=== PATIENT | male | born 1935 | race Caucasian/White ===

== ENCOUNTER 2018-11-07 17:29 | Inpatient (IN) | payer MEDICARE, OTHER ==
[~2018-11-07] VITALS: Ht 172.7 cm; Wt 78.2 kg
[~2018-11-07 17:29] MED LIST: ATEN25 PO; CEPH500 PO; DOXA4 PO; Flomax0.4 MG PO; NIFE90ER PO; POTCHL10ER PO; PROB500 PO; TRIA50 PO
[2018-11-07 17:56] LABS: BASOPHILS ABSOLUTE AUTO 0.03 K/mm3 (0.00-0.23); BASOPHILS PERCENT AUTO 1 % (0-2); EOSINOPHILS ABSOLUTE AUTO 0.09 K/mm3 (0.00-0.68); EOSINOPHILS PERCENT AUTO 2 % (0-6); Hematocrit 40.2 % (37.0-53.0); Hemoglobin 13.7 g/dL (13.5-17.5); IMMATURE GRAN ABSOLUTE AUTO 0.01 K/mm3 (0.00-0.10); IMMATURE GRAN PERCENT AUTO 0 % (0-1); LYMPHOCYTES ABSOLUTE AUTO 1.07 K/mm3 (0.84-5.20); LYMPHOCYTES PERCENT AUTO 18 % (21-46); MONOCYTES ABSOLUTE AUTO 0.42 K/mm3 (0.16-1.47); MONOCYTES PERCENT AUTO 7 % (4-13); Mean Corpuscular HGB Conc 34.1 g/dL (31.5-36.5); Mean Corpuscular Volume 91 fL (80-100); Mean Platelet Volume 10.4 fL (9.1-12.4); NEUTROPHILS ABSOLUTE AUTO 4.24 K/mm3 (1.96-9.15); NEUTROPHILS PERCENT AUTO 72 % (41-73); Platelet Count 147 K/mm3 (150-400); RDW Coefficient Variation 13.2 % (11.7-14.2); RDW Standard Deviation 44.1 fL (35.1-46.3); Red Blood Cell Count 4.42 M/mm3 (4.30-5.90); White Blood Cell Count 5.86 K/mm3 (4.00-11.30)
[2018-11-07 18:15] LABS: Albumin, Blood 4.3 g/dL (3.4-5.0); Bilirubin, Total 0.6 mg/dL (0.1-1.0); Calcium, Blood 9.7 mg/dL (8.5-10.1); Creatinine, Blood 1.89 mg/dL (0.60-1.20); Globulin, Blood 4.3 g/dL (2.2-4.0); Potassium, Blood 3.1 mmol/L (3.5-5.5); Total Protein, Blood 8.6 g/dL (6.4-8.2); Troponin I 0.017 ng/mL (0.000-0.040)
[2018-11-07 18:40] LABS: Source, Urine Catheter
[2018-11-07 18:44] LABS: Appearance, Urine Cloudy (Clear); Bilirubin, Urine Neg (Neg); Blood, Urine 5+ (Neg); Color, Urine Yellow (P-Yellow); Glucose Qualitative, Urine Neg (Neg); Ketones, Urine Neg (Neg); Leukocyte Esterase, Urine 2+ (Neg); Nitrite, Urine Neg (Neg); Protein, Urine 3+ (Neg); Specific Gravity, Urine 1.015 (1.003-1.022); Urobilinogen, Urine NORM (Normal); pH, Urine 6.5 (5.0-8.0)
[2018-11-07 19:02] LABS: Red Blood Cells, Urine TNTC /hpf (0-2); White Blood Cells, Urine 25-50 /hpf (0-5)
[2018-11-07 19:03] LABS: Bacteria Few /hpf; Squamous Epithelial Cells Not Seen /hpf (Few)
[2018-11-08 05:15] LABS: Hematocrit 36.2 % (37.0-53.0); Hemoglobin 12.1 g/dL (13.5-17.5); Mean Corpuscular HGB Conc 33.4 g/dL (31.5-36.5); Mean Corpuscular Volume 90 fL (80-100); Mean Platelet Volume 11.1 fL (9.1-12.4); Platelet Count 143 K/mm3 (150-400); RDW Coefficient Variation 13.2 % (11.7-14.2); RDW Standard Deviation 42.9 fL (35.1-46.3); Red Blood Cell Count 4.04 M/mm3 (4.30-5.90); White Blood Cell Count 7.53 K/mm3 (4.00-11.30)
[2018-11-08 05:45] LABS: Albumin, Blood 3.3 g/dL (3.4-5.0); Albumin/Globulin Ratio 0.9 (0.8-1.8); Bilirubin, Total 0.5 mg/dL (0.1-1.0); Bun/Creatinine Ratio 16.9 (12.0-20.0); Calcium, Blood 8.2 mg/dL (8.5-10.1); Creatinine, Blood 1.77 mg/dL (0.60-1.20); Globulin, Blood 3.5 g/dL (2.2-4.0); Potassium, Blood 3.6 mmol/L (3.5-5.5); Total Protein, Blood 6.8 g/dL (6.4-8.2)
[2018-11-11] MEDS ORDERED: METO25ER PO (14:31)
[2018-11-11] MEDS ORDERED: TAMS.4ER PO (14:32)
[2018-11-11] MEDS ORDERED: CIPRO500 MG PO (14:33)
== END 2018-11-11 15:03 | DRG 690 ==
LOC: ER 17:29 → MEDS 11-08 00:08 → ENPENDDIS 11-11 11:30 → MEDS 11-11 15:03
PROVIDERS: Emergency Medicine; Internal Medicine
DX: N39.0 Urinary tract infection, site not specified (principal); I47.1 Supraventricular tachycardia; N18.3 Chronic kidney disease, stage 3 (moderate); I34.0 Nonrheumatic mitral (valve) insufficiency; R31.9 Hematuria, unspecified; R01.1 Cardiac murmur, unspecified; E87.6 Hypokalemia; E86.0 Dehydration; M19.90 Unspecified osteoarthritis, unspecified site
CPT/HCPCS: 36415; 51702; 70450; 71046; 80053; 81001; 83880; 84443; 84484; 85025; 85027; 87086; 93005; 93010; 93306; 96361; 96365; 96375; 97110; 97162; 97166; 97530; 97535; 99285-25; G8978; G8979; G8987; G8988; J0360; J0696; J7030; J7050

== ENCOUNTER → 2019-05-24 | Outpatient (CLI) | payer MEDICARE, OTHER ==
[~2019-05-24] MED LIST changes: +CIPRO500 MG PO; +METO25ER PO; +TAMS.4ER PO
== END ==
LOC: LAB SHORT 10:30 → LAB 10:30
DX: Z48.817 Encounter for surgical aftercare following surgery on the skin and subcutaneous tissue (principal)
CPT/HCPCS: 87070; 87205

== ENCOUNTER 2019-09-23 10:24 | Emergency (ER) | payer MEDICARE, OTHER ==
[~2019-09-23] VITALS: Ht 170.2 cm; Wt 82.1 kg
[2019-09-23] MEDS ORDERED: METO50ER PO (10:48)
[2019-09-23] MEDS ORDERED: Norvasc2.5 MG PO (10:48)
[2019-09-23] MEDS ORDERED: POTA8 PO (10:48)
[2019-09-23] MEDS ORDERED: FURO20 PO (10:48)
[2019-09-23] MEDS ORDERED: ACET325 PO (10:49)
[2019-09-23 11:43] LABS: Source, Urine Catheter
[2019-09-23 11:46] LABS: Appearance, Urine Cloudy (Clear); Bilirubin, Urine Neg (Neg); Blood, Urine 5+ (Neg); Color, Urine Yellow (P-Yellow); Glucose Qualitative, Urine Neg (Neg); Ketones, Urine Neg (Neg); Leukocyte Esterase, Urine 3+ (Neg); Nitrite, Urine Neg (Neg); Protein, Urine 4+ (Neg); Urobilinogen, Urine NORM (Normal)
[2019-09-23 11:56] LABS: White Blood Cells, Urine TNTC /hpf (0-5)
[2019-09-23 11:58] LABS: Bacteria Many /hpf; Red Blood Cells, Urine 25-50 /hpf (0-2); Squamous Epithelial Cells Not Seen /hpf (Few)
[2019-09-23] MEDS ORDERED: LEVFLO500 PO (12:03)
== END 2019-09-23 13:03 | disposition home or self-care (01) ==
LOC: ER 10:24
PROVIDERS: Emergency Medicine
DX: T83.091A Other mechanical complication of indwelling urethral catheter, initial encounter (principal); N39.0 Urinary tract infection, site not specified; I12.9 Hypertensive chronic kidney disease with stage 1 through stage 4 chronic kidney disease, or unspecified chronic kidney disease; N18.9 Chronic kidney disease, unspecified; D63.1 Anemia in chronic kidney disease; R60.0 Localized edema; Z79.899 Other long term (current) drug therapy
CPT/HCPCS: 51702; 81001; 87077; 87086; 87186; 99283

== ENCOUNTER 2020-02-11 17:09 | Emergency (ER) | payer MEDICARE, OTHER ==
[~2020-02-11] VITALS: Ht 170.2 cm; Wt 88.5 kg
[~2020-02-11 17:09] MED LIST changes: +ACET325 PO; +FURO20 PO; +LEVFLO500 PO; +METO50ER PO; +Norvasc2.5 MG PO; +POTA8 PO
[2020-02-11 18:08] LABS: Source, Urine Catheter
[2020-02-11 18:11] LABS: Bilirubin, Urine Neg (Neg); Blood, Urine 5+ (Neg); Glucose Qualitative, Urine Neg (Neg); Ketones, Urine Neg (Neg); Leukocyte Esterase, Urine 3+ (Neg); Nitrite, Urine Neg (Neg); Protein, Urine 3+ (Neg); Urobilinogen, Urine NORM (Normal)
[2020-02-11 18:18] LABS: Appearance, Urine Hazy (Clear); Color, Urine Pale Yellow (P-Yellow)
[2020-02-11 18:20] LABS: Bacteria Few /hpf; Red Blood Cells, Urine TNTC /hpf (0-2); Squamous Epithelial Cells Not Seen /hpf (Few); White Blood Cells, Urine TNTC /hpf (0-5)
[2020-02-11] MEDS ORDERED: CEPH500 PO (18:28)
[2020-02-11] MEDS ORDERED: Nystatin15 GM TOP (18:28)
== END 2020-02-11 19:38 | disposition home or self-care (01) ==
LOC: ER 17:09
PROVIDERS: Nurse Practitioner
DX: N39.0 Urinary tract infection, site not specified (principal); B37.2 Candidiasis of skin and nail; I12.9 Hypertensive chronic kidney disease with stage 1 through stage 4 chronic kidney disease, or unspecified chronic kidney disease; N18.9 Chronic kidney disease, unspecified; N40.0 Benign prostatic hyperplasia without lower urinary tract symptoms; M19.90 Unspecified osteoarthritis, unspecified site; Z79.899 Other long term (current) drug therapy
CPT/HCPCS: 51702; 81001; 87077; 87086; 87186; 99283

== ENCOUNTER → 2020-10-31 | Outpatient (CLI) | payer MEDICARE, OTHER ==
[~2020-10-31] MED LIST changes: +Nystatin15 GM TOP
[2020-10-31 15:53] LABS: Calcium, Urine 5.6 mg/dL (< 17.5); Calcium, Urine Calculation 123.2 mg/24hrs (42.0-353.0); Phosphorus, Urine 28.8 mg/dL (20.0-60.0)
[2020-10-31 17:06] LABS: Protein, Urine Quantitative 115.8 mg/dL (0.0-11.9); Uric Acid, Urine 24.1 mg/dL (7.5-49.5)
== END | disposition home or self-care (01) ==
LOC: LAB 13:33 → LAB SHORT 13:33 → LAB FUT 10-17 10:15
PROVIDERS: Internal Medicine Nephrology
DX: N18.4 Chronic kidney disease, stage 4 (severe) (principal); D63.1 Anemia in chronic kidney disease; N25.81 Secondary hyperparathyroidism of renal origin; E55.9 Vitamin D deficiency, unspecified; E78.00 Pure hypercholesterolemia, unspecified; R76.9 Abnormal immunological finding in serum, unspecified; R94.5 Abnormal results of liver function studies; R94.6 Abnormal results of thyroid function studies; G60.9 Hereditary and idiopathic neuropathy, unspecified
CPT/HCPCS: 81050; 82043; 82131; 82340; 82507; 82570; 83945; 84105; 84133; 84156; 84300; 84560

== ENCOUNTER → 2021-01-21 | Outpatient (CLI) | payer MEDICARE, OTHER ==
[2021-01-21 15:28] LABS: Creatinine Urine 58.4 mg/dL (27.00-270.00); Protein, Urine Quantitative 225.2 mg/dL (0.0-11.9)
== END | disposition home or self-care (01) ==
LOC: LAB 11:00 → LAB SHORT 11:00 → LAB FUT 01-15 10:00
PROVIDERS: Internal Medicine Nephrology
DX: N18.30 Chronic kidney disease, stage 3 unspecified (principal); D63.1 Anemia in chronic kidney disease; D50.9 Iron deficiency anemia, unspecified; N25.81 Secondary hyperparathyroidism of renal origin; E78.00 Pure hypercholesterolemia, unspecified; E55.9 Vitamin D deficiency, unspecified; D51.8 Other vitamin B12 deficiency anemias; D52.8 Other folate deficiency anemias; N40.1 Benign prostatic hyperplasia with lower urinary tract symptoms; R76.9 Abnormal immunological finding in serum, unspecified; R94.5 Abnormal results of liver function studies; R94.6 Abnormal results of thyroid function studies
CPT/HCPCS: 81050; 82043; 82570; 84156

== ENCOUNTER → 2021-02-26 | Outpatient (CLI) | payer MEDICARE, OTHER | LOC: LAB SHORT 13:11 | DX: L08.9 Local infection of the skin and subcutaneous tissue, unspecified (principal); L21.8 Other seborrheic dermatitis; L81.4 Other melanin hyperpigmentation; D22.72 Melanocytic nevi of left lower limb, including hip; D22.4 Melanocytic nevi of scalp and neck; Z71.89 Other specified counseling | CPT/HCPCS: 87070; 87077; 87147; 87186; 87205 ==

== ENCOUNTER → 2021-04-04 | Outpatient (CLI) | payer MEDICARE, OTHER | LOC: LAB SHORT 13:14 → LAB 13:14 | DX: L08.9 Local infection of the skin and subcutaneous tissue, unspecified (principal); R60.0 Localized edema; L57.0 Actinic keratosis; L21.8 Other seborrheic dermatitis; L57.8 Other skin changes due to chronic exposure to nonionizing radiation | CPT/HCPCS: 87070; 87205 ==

== ENCOUNTER → 2021-08-01 | Outpatient (CLI) | payer MEDICARE, OTHER ==
[2021-08-01 15:34] LABS: Source, Urine Catheter
[2021-08-01 16:09] LABS: Appearance, Urine Cloudy (Clear); Bilirubin, Urine Neg (Neg); Blood, Urine 5+ (Neg); Color, Urine Yellow (P-Yellow); Glucose Qualitative, Urine Neg (Neg); Ketones, Urine Neg (Neg); Leukocyte Esterase, Urine 3+ (Neg); Nitrite, Urine Neg (Neg); Protein, Urine 3+ (Neg); Urobilinogen, Urine NORM (Normal)
[2021-08-01 16:21] LABS: Red Blood Cells, Urine 50-100 /hpf (0-2); Squamous Epithelial Cells Few /hpf (Few); White Blood Cells, Urine 25-50 /hpf (0-5)
[2021-08-01 16:22] LABS: Bacteria Few /hpf; Mucus Light (0-Heavy)
== END | disposition home or self-care (01) ==
LOC: LAB HH 15:30 → LAB SHORT 15:30
PROVIDERS: Urology
DX: N39.0 Urinary tract infection, site not specified (principal)
CPT/HCPCS: 81001; 87077; 87086; 87186

== ENCOUNTER → 2021-08-29 | Outpatient (CLI) | payer MEDICARE, OTHER | LOC: LAB SHORT 10:45 | DX: D22.61 Melanocytic nevi of right upper limb, including shoulder (principal); D22.62 Melanocytic nevi of left upper limb, including shoulder; L30.4 Erythema intertrigo; R21 Rash and other nonspecific skin eruption; L81.4 Other melanin hyperpigmentation; L57.8 Other skin changes due to chronic exposure to nonionizing radiation; Z71.89 Other specified counseling | CPT/HCPCS: 87070; 87205 ==

== ENCOUNTER → 2021-11-28 | Outpatient (CLI) | payer MEDICARE, OTHER | LOC: LAB SHORT 14:06 | DX: D48.5 Neoplasm of uncertain behavior of skin (principal) | CPT/HCPCS: 88312 ==

== ENCOUNTER → 2021-12-31 | Outpatient (CLI) | payer MEDICARE, OTHER ==
[~2021-12-31] MED LIST changes: +AMLO5 PO; +AMOCLA875 PO; +AZIT500 PO; +BUME2 PO; +CALCIUM CARBON500 M1 PO; +DOCU100 PO; +GENT15TO; +METO2.5 PO; -Norvasc2.5 MG PO; -POTA8 PO; +POTCHL20ER PO; +THERA-D2000 UNIT PO; +ZINC OXIDE TOP
== END ==
LOC: LAB SHORT 17:57 → LAB 17:57
DX: L57.0 Actinic keratosis (principal); L57.8 Other skin changes due to chronic exposure to nonionizing radiation; L08.9 Local infection of the skin and subcutaneous tissue, unspecified; B96.89 Other specified bacterial agents as the cause of diseases classified elsewhere
CPT/HCPCS: 87070; 87205

== ENCOUNTER → 2022-01-24 | Outpatient (CLI) | payer MEDICARE, OTHER ==
[2022-01-24 16:29] LABS: Source, Urine Voided
[2022-01-24 17:26] LABS: Bilirubin, Urine Neg (Neg); Blood, Urine 4+ (Neg); Glucose Qualitative, Urine Neg (Neg); Ketones, Urine Neg (Neg); Leukocyte Esterase, Urine 3+ (Neg); Nitrite, Urine Neg (Neg); Protein, Urine 2+ (Neg); Urobilinogen, Urine NORM (Normal)
[2022-01-24 17:49] LABS: Appearance, Urine Hazy (Clear); Color, Urine Pale Yellow (P-Yellow)
[2022-01-24 17:51] LABS: Bacteria Few /hpf; Red Blood Cells, Urine 25-50 /hpf (0-2); Squamous Epithelial Cells Rare /hpf (Few); WBC Cast 0-2 /lpf (0)
== END ==
LOC: LAB SHORT 16:27
PROVIDERS: Internal Medicine Hematology & Oncology
DX: N39.0 Urinary tract infection, site not specified (principal)
CPT/HCPCS: 81001; 87077; 87086; 87186

== ENCOUNTER 2022-02-03 02:06 | Day surgery (SDC) | payer MEDICARE, OTHER ==
[2022-02-03] MEDS ORDERED: [UNRECOGNIZED DRUG - OTHER] (13:20)
[2022-02-03] MEDS ORDERED: HEMORRHOID CREAM (13:21)
[2022-02-03] MEDS ORDERED: TAMS.4ER PO (13:22)
[2022-02-03] MEDS ORDERED: THERA-D2000 UNIT PO (13:22)
[2022-02-03] MEDS ORDERED: KETO15TC TOP (13:27)
[2022-02-03] MEDS ORDERED: NYSTRIT TOP (13:29)
== END 2022-02-03 11:00 | disposition home or self-care (01) ==
LOC: ATC 02:06
DX: N39.0 Urinary tract infection, site not specified (principal); I12.9 Hypertensive chronic kidney disease with stage 1 through stage 4 chronic kidney disease, or unspecified chronic kidney disease; N18.4 Chronic kidney disease, stage 4 (severe); E55.9 Vitamin D deficiency, unspecified
CPT/HCPCS: J0713

== ENCOUNTER 2022-02-04 04:50 | Day surgery (SDC) | payer MEDICARE, OTHER ==
[~2022-02-04 04:50] MED LIST changes: +HEMORRHOID CREAM; +KETO15TC TOP; +NYSTRIT TOP; +[UNRECOGNIZED DRUG - OTHER]
== END 2022-02-04 10:52 | disposition home or self-care (01) ==
LOC: ATC 04:50
DX: N39.0 Urinary tract infection, site not specified (principal); L21.8 Other seborrheic dermatitis; B37.2 Candidiasis of skin and nail; B35.1 Tinea unguium; B35.3 Tinea pedis; I87.2 Venous insufficiency (chronic) (peripheral); R60.0 Localized edema; Z79.899 Other long term (current) drug therapy
CPT/HCPCS: 36415; 80076; 96365; J0713

== ENCOUNTER 2022-02-05 01:20 | Day surgery (SDC) | payer MEDICARE, OTHER | END 2022-02-05 10:31 | disposition home or self-care (01) | LOC: ATC 01:20 | DX: N39.0 Urinary tract infection, site not specified (principal) | CPT/HCPCS: 96365; J0713 ==

== ENCOUNTER 2022-02-06 01:15 | Day surgery (SDC) | payer MEDICARE, OTHER | END 2022-02-06 10:25 | disposition home or self-care (01) | LOC: ATC 01:15 | DX: N39.0 Urinary tract infection, site not specified (principal); E87.6 Hypokalemia | CPT/HCPCS: 36415; 84132; 96365; J0713 ==

== ENCOUNTER 2022-02-07 02:50 | Day surgery (SDC) | payer MEDICARE, OTHER | END 2022-02-07 10:37 | disposition home or self-care (01) | LOC: ATC 02:50 | DX: N39.0 Urinary tract infection, site not specified (principal); I12.9 Hypertensive chronic kidney disease with stage 1 through stage 4 chronic kidney disease, or unspecified chronic kidney disease; N18.4 Chronic kidney disease, stage 4 (severe); E55.9 Vitamin D deficiency, unspecified; E87.6 Hypokalemia; M85.80 Other specified disorders of bone density and structure, unspecified site | CPT/HCPCS: 96365; J0713 ==

== ENCOUNTER 2022-07-27 18:19 | Inpatient (IN) | payer MEDICARE, OTHER ==
[~2022-07-27] VITALS: Ht 172.7 cm; Wt 80.9 kg
[2022-07-27 19:18] LABS: BASOPHILS ABSOLUTE AUTO 0.01 K/mm3 (0.00-0.23); BASOPHILS PERCENT AUTO 0 % (0-2); EOSINOPHILS ABSOLUTE AUTO 0.11 K/mm3 (0.00-0.68); EOSINOPHILS PERCENT AUTO 1 % (0-6); Hematocrit 34.7 % (37.0-53.0); Hemoglobin 11.6 g/dL (13.5-17.5); IMMATURE GRAN ABSOLUTE AUTO 0.03 K/mm3 (0.00-0.10); IMMATURE GRAN PERCENT AUTO 0 % (0-1); LYMPHOCYTES ABSOLUTE AUTO 0.74 K/mm3 (0.84-5.20); LYMPHOCYTES PERCENT AUTO 9 % (21-46); MONOCYTES ABSOLUTE AUTO 0.84 K/mm3 (0.16-1.47); MONOCYTES PERCENT AUTO 10 % (4-13); Mean Corpuscular HGB 29.7 pg (26.0-34.0); Mean Corpuscular HGB Conc 33.4 g/dL (31.5-36.5); Mean Corpuscular Volume 89 fL (80-100); Mean Platelet Volume 10.4 fL (9.1-12.4); NEUTROPHILS ABSOLUTE AUTO 6.63 K/mm3 (1.96-9.15); NEUTROPHILS PERCENT AUTO 79 % (41-73); Platelet Count 183 K/mm3 (150-400); RDW Coefficient Variation 14.4 % (11.7-14.2); RDW Standard Deviation 47.1 fL (35.1-46.3); White Blood Cell Count 8.36 K/mm3 (4.00-11.30)
[2022-07-27 19:32] LABS: Albumin, Blood 2.6 g/dL (3.4-5.0); Albumin/Globulin Ratio 0.6 (0.8-1.8); Bilirubin, Total 0.6 mg/dL (0.1-1.0); Bun/Creatinine Ratio 19.7 (12.0-20.0); Calcium, Blood 9.1 mg/dL (8.5-10.1); Creatinine, Blood 2.18 mg/dL (0.60-1.20); Globulin, Blood 4.7 g/dL (2.2-4.0); Potassium, Blood 3.7 mmol/L (3.5-5.5); Thyroid Stimulating Hormone 1.4 uIU/mL (0.360-4.800); Total Protein, Blood 7.3 g/dL (6.4-8.2)
[2022-07-27 20:38] LABS: Source, Urine Clean Catch
[2022-07-27 20:44] LABS: Appearance, Urine Cloudy (Clear); Bilirubin, Urine Neg (Neg); Blood, Urine 5+ (Neg); Color, Urine Yellow (P-Yellow); Glucose Qualitative, Urine 1+ (Neg); Ketones, Urine Neg (Neg); Leukocyte Esterase, Urine 3+ (Neg); Nitrite, Urine Pos (Neg); Protein, Urine 3+ (Neg); Urobilinogen, Urine NORM (Normal)
[2022-07-27 21:05] LABS: Bacteria Many /hpf; Red Blood Cells, Urine TNTC /hpf (0-2); Squamous Epithelial Cells Few /hpf (Few); White Blood Cells, Urine TNTC /hpf (0-5)
[2022-07-27 21:22] LABS: Influenza A, PCR NEGATIVE (NEGATIVE); Influenza B, PCR NEGATIVE (NEGATIVE); Resp Syncytial Virus, PCR NEGATIVE (NEGATIVE); SARS-Cov-2 (COVID-19) PCR, MMC NEGATIVE (NEGATIVE)
[2022-07-28 06:13] LABS: BASOPHILS ABSOLUTE AUTO 0.01 K/mm3 (0.00-0.23); BASOPHILS PERCENT AUTO 0 % (0-2); EOSINOPHILS ABSOLUTE AUTO 0.07 K/mm3 (0.00-0.68); EOSINOPHILS PERCENT AUTO 1 % (0-6); Hemoglobin 11.6 g/dL (13.5-17.5); IMMATURE GRAN ABSOLUTE AUTO 0.03 K/mm3 (0.00-0.10); IMMATURE GRAN PERCENT AUTO 0 % (0-1); LYMPHOCYTES ABSOLUTE AUTO 0.95 K/mm3 (0.84-5.20); LYMPHOCYTES PERCENT AUTO 13 % (21-46); MONOCYTES ABSOLUTE AUTO 0.78 K/mm3 (0.16-1.47); MONOCYTES PERCENT AUTO 11 % (4-13); Mean Corpuscular HGB 29.8 pg (26.0-34.0); Mean Corpuscular HGB Conc 34.1 g/dL (31.5-36.5); Mean Corpuscular Volume 87 fL (80-100); Mean Platelet Volume 10.7 fL (9.1-12.4); NEUTROPHILS ABSOLUTE AUTO 5.29 K/mm3 (1.96-9.15); NEUTROPHILS PERCENT AUTO 74 % (41-73); Platelet Count 181 K/mm3 (150-400); RDW Coefficient Variation 14.2 % (11.7-14.2); Red Blood Cell Count 3.89 M/mm3 (4.30-5.90); White Blood Cell Count 7.13 K/mm3 (4.00-11.30)
[2022-07-28 06:22] LABS: Albumin, Blood 2.3 g/dL (3.4-5.0); Albumin/Globulin Ratio 0.5 (0.8-1.8); Bilirubin, Total 0.6 mg/dL (0.1-1.0); Bun/Creatinine Ratio 21.3 (12.0-20.0); Creatinine, Blood 2.02 mg/dL (0.60-1.20); Globulin, Blood 4.7 g/dL (2.2-4.0)
--- NOTE | 2022-07-28 16:39 | NUR ---
ADMIT NOTE: REPORT RECEIVED FROM BRINA LAW IN ER. PT TX TO ROOM 302 VIA GURNEY AND SLIDE TX TO BED. PT A/O X 4 PLEASANT AND COOPERATIVE WITH CARE. SKIN ASSESSMENT COMPLETED AND 2 CM X 2 CM STAGE 2 PRESSURE SORE FOUND ON L SIDE BUTTOCK. PT GAVE PERMISSION TO PHOTO DOCUMENT. PHOTO TAKEN AND WOUND CLEANSED WITH SALINE AND GAUZE AND MEPILEX APPLIED. PT ALSO HAD YEAST LIKE ODOROUS RASH IN GROIN AND ON TESTICLES. SKIN MOIST. SKIN CLEANSED AND ATTENDS APPLIED. PT HAS CHRONIC INDWELLING CATHETER LEG BAG ON AND CONTAINS PURULENT COLORED URINE AND IS FOUL SMELLING. PT REPORTS THIS IS A CHRONIC INDWELLING CATHETER AND HAS SERVICES CHANGE CATHETER MONTHLY. PT REFUSES TO HAVE CATHETER CHANGED AT THIS TIME. PT REPORTS PAIN TO KNEE IS TOLERABLE SINCE TYLENOL GIVEN. PT DENIES ANY OTHER NEEDS AT THIS TIME.
[2022-07-28 22:12] LABS: BODY FLUID RBC 0.006 M/mm3 (0-0)
[2022-07-28 22:13] LABS: Body Fluid Crystals POS (NEGATIVE)
[2022-07-28 22:17] LABS: RBC Count, Synovial Fluid 6000 /mm3 (0-0); WBC Count, Synovial Fluid 9834 /mm3 (0-180)
[2022-07-28 22:41] LABS: Appearance, Synovial Fluid Cloudy (Clear); Color, Synovial Fluid Yellow (None-P Yel)
[2022-07-28 23:03] LABS: Lymphs, Synovial Fluid 3 % (0-15); Monocytes/Macrophages, Synovia 13 % (0-65); Neutrophils, Synovial Fluid 84 % (0-24)
--- NOTE | 2022-07-28 23:11 | NUR ---
PT REFUSE BREWER CHANGE PT ARRIVED TO THE UNIT WITH A CHRONIC BREWER CATHETER IN PLACE. URINE IS YELLOW AND CLOUDY. ASKED FOR PERMISSION TO CHANGE BREWER PER PROTOCOL AND PT REFUSED.
--- NOTE | 2022-07-29 04:49 | NUR ---
SHIFT SUMMARY PT HAS CHRONIC INDWELLING BREWER CATHETER WITH A LEG DRAINAGE BAG. DRAINED URINE IS PURULENT, RECOMMENDED TO CHANGE BREWER CATHETER BUT PT REFUSED. ORTHO CONSULT DR BLANCAS SAW PT AND DRAINED FLUID FROM PT'S R KNEE. FLUID WAS SENT TO LAB WHERE MANY WBC AND GRAM + COCCI WERE DETECTED. PT POSSIBLY GOING INTO SURGERY TODAY SO HE HAS BEEN PLACED ON NPO AND ANTICOAGULANTS ARE BEING HELD. PT CONTINUES TO RECIEVE IV ANTIBIOTICS. NO ACUTE EVENTS T/O SHIFT. PT AOX4 AND COOPERATIVE WITH CARE.
[2022-07-29 08:30] LABS: BASOPHILS ABSOLUTE AUTO 0.03 K/mm3 (0.00-0.23); BASOPHILS PERCENT AUTO 0 % (0-2); EOSINOPHILS ABSOLUTE AUTO 0.18 K/mm3 (0.00-0.68); EOSINOPHILS PERCENT AUTO 3 % (0-6); Hematocrit 36.1 % (37.0-53.0); Hemoglobin 11.8 g/dL (13.5-17.5); IMMATURE GRAN ABSOLUTE AUTO 0.02 K/mm3 (0.00-0.10); IMMATURE GRAN PERCENT AUTO 0 % (0-1); LYMPHOCYTES ABSOLUTE AUTO 0.91 K/mm3 (0.84-5.20); LYMPHOCYTES PERCENT AUTO 13 % (21-46); MONOCYTES ABSOLUTE AUTO 0.62 K/mm3 (0.16-1.47); MONOCYTES PERCENT AUTO 9 % (4-13); Mean Corpuscular HGB Conc 32.7 g/dL (31.5-36.5); Mean Corpuscular Volume 89 fL (80-100); NEUTROPHILS ABSOLUTE AUTO 5.05 K/mm3 (1.96-9.15); NEUTROPHILS PERCENT AUTO 74 % (41-73); Platelet Count 207 K/mm3 (150-400); RDW Coefficient Variation 14.2 % (11.7-14.2); RDW Standard Deviation 46.4 fL (35.1-46.3); Red Blood Cell Count 4.07 M/mm3 (4.30-5.90); White Blood Cell Count 6.81 K/mm3 (4.00-11.30)
[2022-07-29 09:30] LABS: Albumin, Blood 2.3 g/dL (3.4-5.0); Anion Gap 7 mmol/L (6-16); Blood Urea Nitrogen 40 mg/dL (8-24); Bun/Creatinine Ratio 17.9 (12.0-20.0); CO2, Blood 24 mmol/L (21-32); Calcium, Blood 9.2 mg/dL (8.5-10.1); Chloride, Blood 105 mmol/L (98-108); Creatinine, Blood 2.23 mg/dL (0.60-1.20); Glomerular Filtration Rate 28 (60-); Glucose, Blood 111 mg/dL (70-99); Phosphorus, Blood 2.4 mg/dL (2.5-4.9); Potassium, Blood 3.9 mmol/L (3.5-5.5); Sodium, Blood 136 mmol/L (136-145)
[2022-07-29] MEDS ORDERED: ITRA100 PO (16:24)
[2022-07-29] MEDS ORDERED: POTCHL20ER PO (16:29)
--- NOTE | 2022-07-29 17:54 | NUR ---
PATIENT IS ALERT AND ORIENTED AND COOPERATIVE WITH CARE. C/O 2/10 BACK AND KNEE PAIN THAT GETS WORSE WITH MOVEMENT. PLAN IS FOR THE PATIENT TO BE NPO AT 0000 07/30/[address] BLANCAS OR DR. LUO TO REASSESS HIM TOMORROW FOR SURGERY. PATIENT WORKED WITH PT AND OT TODAY. RN SPOKE WITH JOELLANIE AT [facility] WHO SAID SHE WAS GOING TO GIVE REPORT TO THE PATIENT'S DAUGHTER. PATIENT REFUSED TO LET THIS RN CHANGE HIS CHRONIC BREWER. PATIENT HAD A BEDBATH THIS MORNING. ON RA. VSS. WILL CONTINUE TO MONITOR
--- NOTE | 2022-07-29 20:18 | NUR ---
CALLED HOSPITALIST INFORMED HIM THAT PT WAS NPO FOR A POSSIBLE PROCEDURE TOMORROW. I DID INFORM HIM OF SCHEDULED HEPARIN. RECEIVED ORDER TO HOLD HEPARIN
--- NOTE | 2022-07-29 23:22 | NUR ---
SHIFT SUMMARY - PT AOX4, PLEASANT AND COOPERATIVE WITH CARE. PT STATES 2/10 ACCEPTABLE PAIN, REPOSITIONING NEEDED FOR COMFORT. PT TO GO NPO TONIGHT AT 0000 FOR POSSIBLE KNEE SURGERY. PT STILL REFUSES CHANGING OF BREWER CATHETER. PT RESTING COMFORTABLY, VSS, WILL CTM.
[2022-07-30 06:38] LABS: BASOPHILS ABSOLUTE AUTO 0.02 K/mm3 (0.00-0.23); BASOPHILS PERCENT AUTO 0 % (0-2); EOSINOPHILS ABSOLUTE AUTO 0.17 K/mm3 (0.00-0.68); EOSINOPHILS PERCENT AUTO 2 % (0-6); Hematocrit 32.2 % (37.0-53.0); Hemoglobin 10.6 g/dL (13.5-17.5); IMMATURE GRAN ABSOLUTE AUTO 0.02 K/mm3 (0.00-0.10); IMMATURE GRAN PERCENT AUTO 0 % (0-1); LYMPHOCYTES PERCENT AUTO 13 % (21-46); MONOCYTES ABSOLUTE AUTO 0.68 K/mm3 (0.16-1.47); MONOCYTES PERCENT AUTO 10 % (4-13); Mean Corpuscular HGB 29.4 pg (26.0-34.0); Mean Corpuscular HGB Conc 32.9 g/dL (31.5-36.5); Mean Corpuscular Volume 89 fL (80-100); Mean Platelet Volume 9.8 fL (9.1-12.4); NEUTROPHILS ABSOLUTE AUTO 5.26 K/mm3 (1.96-9.15); NEUTROPHILS PERCENT AUTO 75 % (41-73); Platelet Count 212 K/mm3 (150-400); RDW Coefficient Variation 14.3 % (11.7-14.2); RDW Standard Deviation 46.7 fL (35.1-46.3); Red Blood Cell Count 3.61 M/mm3 (4.30-5.90); White Blood Cell Count 7.05 K/mm3 (4.00-11.30)
[2022-07-30 07:09] LABS: Anion Gap 6 mmol/L (6-16); Blood Urea Nitrogen 37 mg/dL (8-24); Bun/Creatinine Ratio 17.4 (12.0-20.0); CO2, Blood 24 mmol/L (21-32); Calcium, Blood 8.5 mg/dL (8.5-10.1); Chloride, Blood 106 mmol/L (98-108); Creatinine, Blood 2.13 mg/dL (0.60-1.20); Glomerular Filtration Rate 30 (60-); Glucose, Blood 116 mg/dL (70-99); Phosphorus, Blood 2.2 mg/dL (2.5-4.9); Sodium, Blood 136 mmol/L (136-145)
--- NOTE | 2022-07-30 19:21 | NUR ---
SHIFT SUMMARY 86-YEAR-OLD MALE, PLEASANT, COOPERATIVE, A&O X4. PTN WC AT BASELINE, BEDBOUND WHILE HERE DUE TO WEAKNESS. FULL CODE. PERIPHERAL IV R HAND, PATENT. GENERALIZED PAIN TO KNEE AND BACK, STATES NOTHING HE IS NOT USED TO. PTN SEEN BY DR BLANCAS FOR SURGERY, DIET CHANGED TO RENAL REG DIET. STILL AWAIT CULTURE RESULTS AND PLAN. COMPRESSION SOCK REMOVED FOR A FEW HOURS TODAY BY PHANI HARRINGTON. CONTINUE TO MONITOR.
--- NOTE | 2022-07-31 01:17 | NUR ---
BREWER CATH CHANGE REFUSAL DURING ASSESSMENT I NOTICED PURULENT WHITE AND RED SEDIMENT IN PT'S BREWER CATHETER TUBE. I EDUCATED PT THAT THE BACTERIA FROM THAT SEDIMENT CAN TRAVEL UP HIS TUBE INTO HIS BLADDER, AND HIGHLY RECOMMENDED ALLOWING US TO CHANGE HIS BREWER. PT REFUSED.
--- NOTE | 2022-07-31 04:29 | NUR ---
SHIFT SUMMARY PT AOX4, PLEASANT AND COOPERATIVE WITH CARE. PT HAS SIGNIFICANT R SIDED WEAKNESS TO WHERE HE CAN'T CLOSE HIS R HAND AND CAN BARELY MOVE HIS R LEG AND R ARM. PT WAS NOTED TO HAVE BRADYCARDIA DURING A VITALS CHECK, WITH A HEART RATE IN THE 50'S. PT'S BREWER CATHETER HAS VISIBLE WHITE AND RED SEDIMENT IN THE TUBE AND BAG, PT WAS EDUCATED ABOUT VECTOR OF INFECTION BUT REFUSES A BREWER CHANGE. PT IS NOW RENAL DIET AND HEPARIN IS BEING ADMINISTERED SURGERY IS NOT BEING CONSIDERED FOR HIS KNEE AT THIS TIME, NO ORGANISIMS ARE GROWING IN HIS SYNOVIAL FLUID CULTURE.
[2022-07-31 04:50] LABS: BASOPHILS ABSOLUTE AUTO 0.01 K/mm3 (0.00-0.23); BASOPHILS PERCENT AUTO 0 % (0-2); EOSINOPHILS PERCENT AUTO 0 % (0-6); Hematocrit 31.9 % (37.0-53.0); Hemoglobin 10.5 g/dL (13.5-17.5); IMMATURE GRAN ABSOLUTE AUTO 0.04 K/mm3 (0.00-0.10); IMMATURE GRAN PERCENT AUTO 1 % (0-1); LYMPHOCYTES ABSOLUTE AUTO 0.89 K/mm3 (0.84-5.20); LYMPHOCYTES PERCENT AUTO 12 % (21-46); MONOCYTES ABSOLUTE AUTO 0.55 K/mm3 (0.16-1.47); MONOCYTES PERCENT AUTO 7 % (4-13); Mean Corpuscular HGB 29.2 pg (26.0-34.0); Mean Corpuscular HGB Conc 32.9 g/dL (31.5-36.5); Mean Corpuscular Volume 89 fL (80-100); Mean Platelet Volume 9.7 fL (9.1-12.4); NEUTROPHILS ABSOLUTE AUTO 6.26 K/mm3 (1.96-9.15); NEUTROPHILS PERCENT AUTO 81 % (41-73); Platelet Count 232 K/mm3 (150-400); RDW Coefficient Variation 14.4 % (11.7-14.2); RDW Standard Deviation 46.3 fL (35.1-46.3); Red Blood Cell Count 3.59 M/mm3 (4.30-5.90); White Blood Cell Count 7.75 K/mm3 (4.00-11.30)
[2022-07-31 05:22] LABS: Albumin, Blood 1.9 g/dL (3.4-5.0); Anion Gap 9 mmol/L (6-16); Blood Urea Nitrogen 50 mg/dL (8-24); CO2, Blood 23 mmol/L (21-32); Calcium, Blood 8.5 mg/dL (8.5-10.1); Chloride, Blood 104 mmol/L (98-108); Creatinine, Blood 2.38 mg/dL (0.60-1.20); Glomerular Filtration Rate 26 (60-); Glucose, Blood 197 mg/dL (70-99); Phosphorus, Blood 3.2 mg/dL (2.5-4.9); Potassium, Blood 4.1 mmol/L (3.5-5.5); Sodium, Blood 136 mmol/L (136-145)
--- NOTE | 2022-07-31 19:29 | NUR ---
SHIFT SUMMARY PLEASANT 86-YEAR-OLD, A&O X4, FULL CODE. PTN WC AT BASELINE, BUT HAS BEEN BEDBOUND SINCE HERE DUE TO WEAKNESS. TODAY HE WAS ABLE TO STAND BY BED DURING OT TREAT, AND HE REPORTED HE DID SO WITHOUT PAIN. RENAL DIET. FOLLOWED BY HOSPITALIST AND SURGERY. CT AND MRI DONE TODAY. CONTINUE TO FOLLOW.
[2022-08-01 04:29] LABS: Hematocrit 31.5 % (37.0-53.0); Hemoglobin 10.6 g/dL (13.5-17.5)
[2022-08-01 04:58] LABS: Albumin, Blood 2.1 g/dL (3.4-5.0); Anion Gap 9 mmol/L (6-16); Blood Urea Nitrogen 60 mg/dL (8-24); CO2, Blood 22 mmol/L (21-32); Calcium, Blood 8.4 mg/dL (8.5-10.1); Chloride, Blood 103 mmol/L (98-108); Glomerular Filtration Rate 25 (60-); Glucose, Blood 286 mg/dL (70-99); Potassium, Blood 4.2 mmol/L (3.5-5.5); Sodium, Blood 134 mmol/L (136-145)
--- NOTE | 2022-08-01 05:57 | NUR ---
Rn summary: Patient is alert and oriented x 4. Lungs are clear, diminished in bases. Pt is on RA. Pt has a howell to leg bag with some occ sedament. dk yellow in color. Pt has a jobst stocking to lower left leg. Pt has rash upper chest and around and in ears. Cream applied. This is a long standing skin issue. Pt is W/C bound at baseline. He has been in bed all this shift. Plan is for DC home with home health when ready. Call light in reach, easily makes needs known.
--- NOTE | 2022-08-01 19:33 | NUR ---
SHIFT SUMMARY MR SALINAS IS ALERT, ORIENTATED X 4. PT GOT OOBTC WITH OT THIS MORNING, BUT WAS UNCOMFORTABLE IN THE CHAIR WITH SACRAL DECUB AND RIGHT ARM AND LEG DISCOMFORT SO ONLY SAT OUT FOR ABOUT 1 HOUR. NO BM X 1 WEEK, MOM AND MIRILAX GIVEN WITH NO RESULT YET. NS 250CC IVF INFUSED. PER AREA RED, CLEANSED WELL AND MEDICATION APPLIED. BREWER LEG BAG IN PLACE, BREWER CARE DONE. C/O DRY SKIN AND REDENED AREA TO NECK AND SHOULDER AREA, CLEANSED WELL AND CREAM APPLIED. C/O HEADACHE - TYLENOL WAS EFFECTIVE. BED LOW, CALL LIGHT IN REACH.
--- NOTE | 2022-08-02 04:29 | NUR ---
PATIENT ALERT AND ORIENTED, URINE DRAINING TO BREWER LEG BAG, PATIENT HAS RIGHT SIDED WEAKNESS, MEPILEX TO BUTTOCK
[2022-08-02 05:00] LABS: Hematocrit 30.9 % (37.0-53.0); Hemoglobin 10.4 g/dL (13.5-17.5)
[2022-08-02 05:48] LABS: Anion Gap 7 mmol/L (6-16); Blood Urea Nitrogen 69 mg/dL (8-24); Bun/Creatinine Ratio 29.5 (12.0-20.0); CO2, Blood 23 mmol/L (21-32); Calcium, Blood 8.5 mg/dL (8.5-10.1); Chloride, Blood 100 mmol/L (98-108); Creatinine, Blood 2.34 mg/dL (0.60-1.20); Glomerular Filtration Rate 27 (60-); Glucose, Blood 313 mg/dL (70-99); Phosphorus, Blood 2.1 mg/dL (2.5-4.9); Potassium, Blood 4.4 mmol/L (3.5-5.5); Sodium, Blood 130 mmol/L (136-145)
--- NOTE | 2022-08-02 10:56 | NUR ---
AM NOTE MR SALINAS IS A&OX4. HE DENIES PAIN THIS MORNING WHILE RESTING IN BED. HE HAS NOT HAD A BM FOR 8 DAYS. GIVEN MOM, MIRILAX AND COLACE THIS AM. CHRONIC BREWER WITH YELLOW URINE OUTPUT WITH SL SEDIMENT NOTED. PT SAID HE GETS HIS BREWER CHANGED BY HOME CARE NURSE AT THE BEGINNING OF EACH MONTH, BUT HE CAN NOT TELL ME IF HE GOT IT CHANGED AT THE BEGINNING OF . BED LOW, CALL LIGHT IN REACH
--- NOTE | 2022-08-02 16:45 | NUR ---
MR SALINAS HAS BEEN SLEEPING FOR MUCH OF THE DAY. HE HAS DECLINED PHYSICAL THERAPY TWICE TODAY, DECLINED TO GET UP INTO THE CHAIR, SAID HE WANTED TO BE LEFT TO REST TODAY. HE AWAKENS EASILY AND IS ORIENTATED. STILL NO BM. S/B DR FIELDS AND ORDER ENTERED FOR SENNA AND SUPPOSITORY. MR LEAVITT HAS DENIED PAIN TODAY. HE HAS ALLOWED REPOSITIONING WITH PILLOWS. BED LOW, CALL LIGHT IN REACH.
[2022-08-03 05:08] LABS: Hematocrit 32.8 % (37.0-53.0); Hemoglobin 10.9 g/dL (13.5-17.5)
--- NOTE | 2022-08-03 05:38 | NUR ---
WOUND CARE CENTER CONSULTANT SUMMARY PT STILL COMPLAINING OF NO BM AND SOME STOMACH UPSET. PT INFORMED THAT THE MEDICATIONS GIVEN PREVIOUSLY WILL CAUSE SOME STOMACH DISCOMFORT AND HE NEEDS TO HAVE A BM. SMALL SMEAR DURING THIS SHIFT. CHRONIC BREWER IN PLACE AND DRAINING TO LEG BACK. PT ALERT AND ORIENTED, COOPERATIVE WITH CARE. CHRONIC PAIN TO HIS BACK THAT HE REFUSES MEDICATION FOR. NO ACUTE EVENTS THIS SHIFT.
[2022-08-03 05:50] LABS: Albumin, Blood 2.1 g/dL (3.4-5.0); Anion Gap 7 mmol/L (6-16); Blood Urea Nitrogen 64 mg/dL (8-24); Bun/Creatinine Ratio 30.9 (12.0-20.0); CO2, Blood 23 mmol/L (21-32); Calcium, Blood 8.3 mg/dL (8.5-10.1); Chloride, Blood 102 mmol/L (98-108); Creatinine, Blood 2.07 mg/dL (0.60-1.20); Glomerular Filtration Rate 31 (60-); Glucose, Blood 332 mg/dL (70-99); Phosphorus, Blood 3.1 mg/dL (2.5-4.9); Potassium, Blood 4.5 mmol/L (3.5-5.5); Sodium, Blood 132 mmol/L (136-145)
--- NOTE | 2022-08-03 11:02 | NUR ---
AM NOTE MR SALINAS SAID HE IS FEELING BETTER TODAY, HE DENIES PAIN AND DENIES NEEDING PAIN MEDICATIONS, BUT DOES C/O SOME DISCOMFORT WHEN REPOSITIONED. HE SAID HE'S NOT BEEN GETTING ENOUGH SLEEP AND KEEPS GETTING DISTURBED. HE HAD A BED BATH THIS AM AND SAID THAT HE WILL GET OUT OF BED TODAY, BUT HASN'T WANTED TO GET UP THIS MORNING. HE DID HAVE A LARGE BM. SACRAL DECUB APPROX 1CM IN SIZE AND REDENNED AREA, MEPILEX CHANGED. CHRONIC BREWER IN PLACE WITH SOME SEDIMENT IN TUBING. BED LOW, CALL LIGHT IN REACH.
--- NOTE | 2022-08-03 16:05 | NUR ---
SHIFT SUMMARY MR SALINAS CONTINUES TO REST IN BED, TURNED Q 2 HRS, HE HAS NOT WANTED TO GET UP OUT OF BED. MEPILEX CHANGED OVER SACRAL AREA AFTER ANOTHER LARGE BM. HE HAS EXPRESSED SADNESS OVER GETTING OLDER AND NOT BEING ABLE TO CARE FOR HIMSELF ANY MORE. HIS RIGHT HAND IS PUFFY/SWOLLEN, ELEVATED ABOVE HEART. ABLE TO DO GROSS MOVEMENT TO R ARM BUT NOT ABLE TO MOVE FINGERS. HE SAID "IT'S JUST DECORATIVE". HE HAS A GOOD APPETITE, ENCOURAGED TO KEEP UP FLUID INTAKE. I OFFERED TO CALL [facility] OR THERAPEUTIC DOG, BUT HE DECLINED BOTH. BED LOW, CALL LIGHT IN REACH.
--- NOTE | 2022-08-04 03:38 | NUR ---
SUMMARY: PT A/OX4, SPECIFIES NEEDS AND IS PLEASANT/COOPERATIVE W/CARE. HE'S W/C BOUND AND BASELINE AND REMAIN ON BEDREST W/TURN SCHEDULE MAINTAINED. MEPILEX TO COCCYX WAS CHANGED D/T BECOMING SOILED W/STOOL. SMALL OPEN SORE OBSERVED TO BUTTOCKS W/SOME SURROUNDING EXCORIATION. ATTENDS CHANGED PRN AND CHRONIC BREWER IS PATENT/DRAINING TO LEG BAG. R.SIDE WEAKNESS PERSISTS BUT PT HAS GROSS EXTREMITY MOVEMENT AND CAN ASSIST W/REPOSITIONING. R.HAND AND BLE'S ARE SLIGHTLY SWOLLEN AND ELEVATED ON PILLOWS. HE'S DENIED PAIN AND ALL OTHER COMPLAINTS BUT SEEMS FLAT AND WITHDRAWN HAVING EXPRESSED SADNESS OVER AGING. NO ACUTE CHANGES, VSS/AFEBRILE. PT/OT CONSULTING AND [place] DEL CID INTENDED TODAY. WCTM AND REPORT TO DAY RN.
[2022-08-04 07:09] LABS: Albumin, Blood 2.1 g/dL (3.4-5.0); Anion Gap 6 mmol/L (6-16); Blood Urea Nitrogen 57 mg/dL (8-24); Bun/Creatinine Ratio 31.7 (12.0-20.0); CO2, Blood 25 mmol/L (21-32); Calcium, Blood 8.2 mg/dL (8.5-10.1); Chloride, Blood 103 mmol/L (98-108); Glomerular Filtration Rate 37 (60-); Glucose, Blood 270 mg/dL (70-99); Phosphorus, Blood 2.2 mg/dL (2.5-4.9); Potassium, Blood 4.3 mmol/L (3.5-5.5); Sodium, Blood 134 mmol/L (136-145)
--- NOTE | 2022-08-04 08:00 | NUR ---
pt laying in bed watching tv, a/ox3, pleasant and cooperative with care, follows commands well, denies pain, states he had a good night, lungs are clear dim in bases, resp even and unlabored, no cough noted, on r/a, hrr, no edema noted, ppp faint, cap refill <3sec, vs stable, afebrile, iv site to rhand, site is clear and patent, btx4, abd flat soft nontender, voids via chronic howell cath, briefs in place for incont stools, skin has mepilex to coccyx with small open area, bed bound, legs are very weak, ted, call light in reach.
--- NOTE | 2022-08-04 18:55 | NUR ---
pt had an uneventful day, PT transfered him, no acute changes this shift. call light in reach.
--- NOTE | 2022-08-05 03:56 | NUR ---
SUMMARY: PT A/OX4, SPECIFIES NEEDS AND IS PLEASANT AND COOPERATIVE W/CARE. TURN SCHEDULE MAINTAINED AND W/C BOUND AT BASELINE. MEPILEX CHANGED TO BUTTOCKS D/T BECOMING SOILED W/BM AND ATTENDS CHANGED PRN. SMALL SORE PRESENT PHOTOGRAPHED. CHRONIC BREWER IS PATENT/DRAINING TO LEG BAG. R.SIDE WEAKNESS PERSISTS BUT GROSS MOVEMENT IS INTACT AND DEXTERITY IS IMPROVING TO R.HAND. PT DENIES PAIN AND ALL OTHER COMPLAINTS. VSS/AFEBRILE AND NO ACUTE CHANGES. WCTM AND REPORT TO DAY RN.
[2022-08-05 05:29] LABS: Albumin, Blood 2.1 g/dL (3.4-5.0); Anion Gap 8 mmol/L (6-16); Blood Urea Nitrogen 57 mg/dL (8-24); Bun/Creatinine Ratio 26.9 (12.0-20.0); CO2, Blood 24 mmol/L (21-32); Calcium, Blood 8.1 mg/dL (8.5-10.1); Chloride, Blood 101 mmol/L (98-108); Creatinine, Blood 2.12 mg/dL (0.60-1.20); Glomerular Filtration Rate 30 (60-); Glucose, Blood 258 mg/dL (70-99); Phosphorus, Blood 2.4 mg/dL (2.5-4.9); Sodium, Blood 133 mmol/L (136-145)
[2022-08-05] MEDS ORDERED: MIRALAX17 GM PO (11:42)
--- NOTE | 2022-08-05 13:00 | NUR ---
PT DISCHARGED THE PT WAS DISCHARGED BACK TO [facility] . ORDERS FAXED TO [facility]. THE PT WAS TRANSFERED VIA WHEELCHAIR ACCOMPANIED BY [employer]. PT APPEARED TO BE BREATHING EASILY ON RA AT THE TIME OF DC
--- NOTE | 2022-08-05 16:31 | NUR ---
PT TRANSFERED PT TRANSFERED TO [facility]. PT WAS A/4 APPEARED TO BE BREATHING EASILY ON RA. REPORT GIVEN TO OTONIEL LAW. THE PT WAS TRANSFERED VIA WHEELCHAIR ACCOMPANIED BY [employer]. ORDERS SENT WITH THE PATIENT
== END 2022-08-05 13:49 | DRG 74 ==
LOC: ER 18:19 → ERHOLD 18:20 → MEDS 07-28 15:34
PROVIDERS: Emergency Medicine; Family Medicine; Internal Medicine; Orthopaedic Surgery; ADMIT Family Medicine
DX: G58.8 Other specified mononeuropathies (principal); N39.0 Urinary tract infection, site not specified; N18.4 Chronic kidney disease, stage 4 (severe); G95.29 Other cord compression; N17.9 Acute kidney failure, unspecified; M00.9 Pyogenic arthritis, unspecified; M48.04 Spinal stenosis, thoracic region; M10.9 Gout, unspecified; I12.9 Hypertensive chronic kidney disease with stage 1 through stage 4 chronic kidney disease, or unspecified chronic kidney disease; R73.9 Hyperglycemia, unspecified; M25.461 Effusion, right knee; K59.00 Constipation, unspecified; N40.0 Benign prostatic hyperplasia without lower urinary tract symptoms; Z96.0 Presence of urogenital implants; Z20.822 Contact with and (suspected) exposure to COVID-19; D63.1 Anemia in chronic kidney disease; M19.90 Unspecified osteoarthritis, unspecified site; R00.1 Bradycardia, unspecified; E83.39 Other disorders of phosphorus metabolism; I95.9 Hypotension, unspecified; N32.0 Bladder-neck obstruction; R32 Unspecified urinary incontinence; Z79.899 Other long term (current) drug therapy; Z74.01 Bed confinement status; Z98.890 Other specified postprocedural states; Z87.891 Personal history of nicotine dependence
CPT/HCPCS: 0241U; 36415; 70551; 72100; 72141; 72146; 72148; 73502; 73562-RT; 80053; 80069; 81001; 82947; 83036; 84443; 84484; 84550; 85014; 85018; 85025; 85651; 86140; 87040; 87070; 87075; 87086; 87205; 89051; 89060; 93005; 93010; 93971; 96365; 96366; 96372-59; 96376; 97110; 97162; 97166; 97530; 97535; 99285-25; A9270; J1644; J2543; J3010; J3370; J7050; J7060; J7512

== ENCOUNTER → 2022-09-04 | Outpatient (CLI) | payer MEDICARE, OTHER ==
[~2022-09-04] MED LIST changes: +ITRA100 PO; +MIRALAX17 GM PO
[2022-09-04 15:46] LABS: Appearance, Urine Cloudy (Clear); Bilirubin, Urine Neg (Neg); Blood, Urine 5+ (Neg); Color, Urine Yellow (P-Yellow); Glucose Qualitative, Urine Neg (Neg); Ketones, Urine Neg (Neg); Leukocyte Esterase, Urine 3+ (Neg); Nitrite, Urine Pos (Neg); Protein, Urine 3+ (Neg); Urobilinogen, Urine NORM (Normal)
[2022-09-04 16:37] LABS: Red Blood Cells, Urine 50-100 /hpf (0-2); Squamous Epithelial Cells Few /hpf (Few); White Blood Cells, Urine TNTC /hpf (0-5)
[2022-09-04 16:38] LABS: Bacteria Many /hpf; Transitional Epithelial Cells Rare /hpf (0-Rare)
== END | disposition home or self-care (01) ==
LOC: LAB HH 11:25
PROVIDERS: Urology
DX: N39.0 Urinary tract infection, site not specified (principal)
CPT/HCPCS: 81001; 87077; 87086; 87186

== ENCOUNTER → 2022-12-05 | Outpatient (CLI) | payer MEDICARE, OTHER ==
[2022-12-05 16:57] LABS: Appearance, Urine Cloudy (Clear); Bilirubin, Urine Neg (Neg); Blood, Urine 5+ (Neg); Glucose Qualitative, Urine Neg (Neg); Ketones, Urine Neg (Neg); Leukocyte Esterase, Urine 3+ (Neg); Nitrite, Urine Neg (Neg); Protein, Urine 2+ (Neg); Urobilinogen, Urine NORM (Normal)
[2022-12-05 17:11] LABS: Color, Urine Pale Yellow (P-Yellow)
[2022-12-05 17:13] LABS: Bacteria Mod /hpf; Granular Casts 0-2 /lpf (0); Hyaline Casts 0-2 /lpf (0-2); Red Blood Cells, Urine TNTC /hpf (0-2); Squamous Epithelial Cells Rare /hpf (Few); White Blood Cells, Urine TNTC /hpf (0-5)
== END | disposition home or self-care (01) ==
LOC: LAB SHORT 12:45
PROVIDERS: Internal Medicine Hematology & Oncology
DX: N39.0 Urinary tract infection, site not specified (principal)
CPT/HCPCS: 81001

== ENCOUNTER → 2023-03-24 | Outpatient (CLI) | payer MEDICARE, OTHER ==
[2023-03-24 19:38] LABS: Albumin, Blood 3.4 g/dL (3.4-5.0); Albumin/Globulin Ratio 0.8 (0.8-1.8); Bilirubin, Total 0.4 mg/dL (0.1-1.0); Bun/Creatinine Ratio 20.3 (12.0-20.0); Creatinine, Blood 2.51 mg/dL (0.60-1.20); Globulin, Blood 4.2 g/dL (2.2-4.0); Phosphorus, Blood 3.1 mg/dL (2.5-4.9); Total Protein, Blood 7.6 g/dL (6.4-8.2)
== END | disposition home or self-care (01) ==
LOC: LAB 12:05 → LAB SHORT 12:05
PROVIDERS: Internal Medicine Hematology & Oncology
DX: N18.9 Chronic kidney disease, unspecified (principal); D63.1 Anemia in chronic kidney disease
CPT/HCPCS: 80053; 84100

== ENCOUNTER → 2023-04-09 | Outpatient (CLI) | payer MEDICARE, OTHER ==
[2023-04-09 16:08] LABS: Source, Urine Clean Catch
[2023-04-09 16:34] LABS: Appearance, Urine Cloudy (Clear); Bilirubin, Urine Neg (Neg); Blood, Urine 5+ (Neg); Color, Urine Yellow (P-Yellow); Glucose Qualitative, Urine Neg (Neg); Ketones, Urine Neg (Neg); Leukocyte Esterase, Urine 3+ (Neg); Nitrite, Urine Neg (Neg); Protein, Urine 3+ (Neg); Urobilinogen, Urine NORM (Normal)
[2023-04-09 16:44] LABS: White Blood Cells, Urine TNTC /hpf (0-5)
[2023-04-09 16:45] LABS: Bacteria Mod /hpf; Red Blood Cells, Urine 25-50 /hpf (0-2); Squamous Epithelial Cells Rare /hpf (Few)
== END | disposition home or self-care (01) ==
LOC: LAB SHORT 16:02 → LAB 16:02
PROVIDERS: Internal Medicine Hematology & Oncology
DX: N39.0 Urinary tract infection, site not specified (principal)
CPT/HCPCS: 81001; 87077; 87086; 87186

== ENCOUNTER 2023-04-21 04:30 | Inpatient (IN) | payer MEDICARE, OTHER ==
[~2023-04-21] VITALS: Ht 172.7 cm; Wt 85.9 kg
[~2023-04-21 04:30] MED LIST changes: +MORP15ER PO; +ONDA4ODT MM; +TERB250 PO
[2023-04-21 04:58] LABS: BASOPHILS ABSOLUTE AUTO 0.02 K/mm3 (0.00-0.23); BASOPHILS PERCENT AUTO 0 % (0-2); EOSINOPHILS ABSOLUTE AUTO 0.03 K/mm3 (0.00-0.68); EOSINOPHILS PERCENT AUTO 0 % (0-6); Hematocrit 35.4 % (37.0-53.0); Hemoglobin 11.8 g/dL (13.5-17.5); IMMATURE GRAN ABSOLUTE AUTO 0.05 K/mm3 (0.00-0.10); IMMATURE GRAN PERCENT AUTO 0 % (0-1); LYMPHOCYTES ABSOLUTE AUTO 0.87 K/mm3 (0.84-5.20); LYMPHOCYTES PERCENT AUTO 7 % (21-46); MONOCYTES PERCENT AUTO 10 % (4-13); Mean Corpuscular HGB 29.4 pg (26.0-34.0); Mean Corpuscular HGB Conc 33.3 g/dL (31.5-36.5); Mean Corpuscular Volume 88 fL (80-100); Mean Platelet Volume 9.3 fL (9.1-12.4); NEUTROPHILS ABSOLUTE AUTO 10.06 K/mm3 (1.96-9.15); NEUTROPHILS PERCENT AUTO 82 % (41-73); Platelet Count 261 K/mm3 (150-400); RDW Coefficient Variation 13.5 % (11.7-14.2); RDW Standard Deviation 43.5 fL (35.1-46.3); Red Blood Cell Count 4.02 M/mm3 (4.30-5.90); White Blood Cell Count 12.23 K/mm3 (4.00-11.30)
[2023-04-21 05:30] LABS: Albumin, Blood 2.4 g/dL (3.4-5.0); Albumin/Globulin Ratio 0.5 (0.8-1.8); Bilirubin, Total 0.5 mg/dL (0.1-1.0); Bun/Creatinine Ratio 14.6 (12.0-20.0); Calcium, Blood 8.7 mg/dL (8.5-10.1); Creatinine, Blood 2.26 mg/dL (0.60-1.20); Potassium, Blood 4.4 mmol/L (3.5-5.5); Total Protein, Blood 7.4 g/dL (6.4-8.2)
[2023-04-21 05:50] LABS: Source, Urine Foley catheter
[2023-04-21 06:12] LABS: Appearance, Urine Turbid (Clear); Bilirubin, Urine Neg (Neg); Blood, Urine 5+ (Neg); Color, Urine Yellow (P-Yellow); Glucose Qualitative, Urine Neg (Neg); Ketones, Urine Neg (Neg); Leukocyte Esterase, Urine 3+ (Neg); Nitrite, Urine Neg (Neg); Protein, Urine 3+ (Neg); Urobilinogen, Urine NORM (Normal)
[2023-04-21 06:16] LABS: Bacteria Many /hpf; White Blood Cells, Urine TNTC /hpf (0-5)
[2023-04-21 06:18] LABS: Squamous Epithelial Cells Mod /hpf (Few); Transitional Epithelial Cells Rare /hpf (0-Rare)
[2023-04-21 11:08] VITALS: BP 136/82
--- NOTE | 2023-04-21 18:52 | NUR ---
SHIFT SUMMARY: ASSUMED CARE OF PATIENT UPON HIS ARRIVAL FROM ED AT 1100. A&O X 3, PLEASANT AND COOPERATIVE. MEDICATED FOR L FLANK PAIN WITH ADEQUATE RELIEF, WAS ABLE TO TAKE A NAP. TELEMETRY PLACED, SR 65. CHRONIC BREWER CATH CHANGED DOWN IN ED PRIOR TO HIS ARRIVAL ON MEDICAL FLOOR. HAS NUMEROUS WOUNDS IN GROIN, SACRUM, SCROTUM, PENIS, BLE, AND BACK; PHOTOS TAKEN AND PLACED IN CHART. USES W/C AT BASELINE. URINE IS PURULENT AND BLOODY. GOOD APPETITE, EATS SLOW.
[2023-04-21 19:34] VITALS: BP 147/73
[2023-04-22 03:39] VITALS: BP 162/72
--- NOTE | 2023-04-22 05:08 | NUR ---
SUMMARY: PT A/OX3, SPECIFIES NEEDS W/STAFF IN ROOM AND IS PLEASANT AND COOPERATIVE W/CARE. HE'S W/C BOUND AT BASELINE W/TURN SCHEDULE MAINTAINED. MEPILEX REMAINS C/D/I TO BUTTOCKS, EXT'S ELEVATED IN BED AND PILLOWS PLACED FOR SBD PREVENTION. CHRONIC BREWER WAS CHANGED IN ER AND IS PATENT AND DRAINING TURBID YELLOW UO W/SEDIMENT. HE HAS SORES, EXCORIATION AND REDNESS TO HEAD OF PENIS, GROIN, SCROTUM, BUTTOCKS, BACK AND BLE. RX'D ZINC CREAM, NYSTATIN POWDER AND GENTAMYCIN OINTMENT APPLIED TO AFFECTED AREAS. SEE PHOTOS FOR SKIN DETAILS. PARTIAL BED BATH DONE AND FREQ CATH/EWA CARE COMPLETED FOR OOZING AT URINARY MEATUS. HE DENIED PAIN/NEED FOR PRN MEDS. VSS/AFEBRILE, NO ACUTE CHANGES AND HE REMAINS NSR W/1ST DEGREE BLOCK AT 60'S-100 BPM ON TELEMETRY. WCTM AND REPORT TO DAY RN.
[2023-04-22 05:15] LABS: BASOPHILS ABSOLUTE AUTO 0.02 K/mm3 (0.00-0.23); BASOPHILS PERCENT AUTO 0 % (0-2); EOSINOPHILS ABSOLUTE AUTO 0.03 K/mm3 (0.00-0.68); EOSINOPHILS PERCENT AUTO 0 % (0-6); Hematocrit 36.9 % (37.0-53.0); Hemoglobin 12.2 g/dL (13.5-17.5); IMMATURE GRAN ABSOLUTE AUTO 0.03 K/mm3 (0.00-0.10); IMMATURE GRAN PERCENT AUTO 0 % (0-1); LYMPHOCYTES ABSOLUTE AUTO 0.48 K/mm3 (0.84-5.20); LYMPHOCYTES PERCENT AUTO 6 % (21-46); MONOCYTES ABSOLUTE AUTO 0.72 K/mm3 (0.16-1.47); MONOCYTES PERCENT AUTO 10 % (4-13); Mean Corpuscular HGB 28.9 pg (26.0-34.0); Mean Corpuscular HGB Conc 33.1 g/dL (31.5-36.5); Mean Corpuscular Volume 87 fL (80-100); Mean Platelet Volume 9.5 fL (9.1-12.4); NEUTROPHILS ABSOLUTE AUTO 6.31 K/mm3 (1.96-9.15); NEUTROPHILS PERCENT AUTO 83 % (41-73); Platelet Count 234 K/mm3 (150-400); RDW Coefficient Variation 13.4 % (11.7-14.2); RDW Standard Deviation 42.7 fL (35.1-46.3); Red Blood Cell Count 4.22 M/mm3 (4.30-5.90); White Blood Cell Count 7.59 K/mm3 (4.00-11.30)
[2023-04-22 05:44] LABS: Albumin, Blood 2.3 g/dL (3.4-5.0); Albumin/Globulin Ratio 0.5 (0.8-1.8); Bilirubin, Total 0.5 mg/dL (0.1-1.0); Bun/Creatinine Ratio 17.3 (12.0-20.0); Calcium, Blood 9.3 mg/dL (8.5-10.1); Creatinine, Blood 2.2 mg/dL (0.60-1.20); Potassium, Blood 4.2 mmol/L (3.5-5.5); Total Protein, Blood 7.3 g/dL (6.4-8.2)
[2023-04-22 05:57] LABS: BASOPHILS PERCENT MAN 0 % (0-2); EOSINOPHILS PERCENT MAN 0 % (0-6); LYMPHOCYTES ABSOLUTE MAN 0.83 K/mm3 (0.84-5.20); LYMPHOCYTES PERCENT MAN 11 % (21-46); MONOCYTES ABSOLUTE MAN 0.45 K/mm3 (0.16-1.47); MONOCYTES PERCENT MAN 6 % (4-13); NEUTROPHILS ABSOLUTE MAN 6.29 K/mm3 (1.96-9.15); SEG NEUTROPHILS PERCENT MAN 83 % (41-73); TOTAL CELLS COUNTED 100
[2023-04-22 07:37] VITALS: BP 145/89
--- NOTE | 2023-04-22 10:39 | NUR ---
WOUND CARE MOISTURIZER APPLIED TO BLE. MYCOLOG TO BACK, SCROTUM, TOES. GENTAMICIN TO ULCERATIONS ON PENIS AND R LATERAL FOOT. PT TOLERATED WELL
[2023-04-22 14:57] VITALS: BP 119/71
--- NOTE | 2023-04-22 16:52 | NUR ---
SHIFT SUMMARY- PT IS A/O, PLESANT AND COOPERATVE. WOUND RN SAW PT TODAY. HE SLEPT INTERMITENTLY DURING THIS SHIFT. HIS BREWER IS PATIENT AND DRAINING TO GRAVITY. VS HAVE BEEN STABLE. HE IS EATING AND DRINKING WELL. HIS BED IS IN THE LOW POSITION AND CALL LIGHT IS WITHIN REACH.
[2023-04-22 19:33] VITALS: BP 121/84
--- NOTE | 2023-04-23 04:03 | NUR ---
SHIFT SUMMARY; NO ACUTE CHANGES OVERNIGHT. THE PT IS AXO X4 AND BEDBOUND, THE PT IS WHEELCHAIR BOUND AT BASELINE. THE PTS CHORNIC BREWER IS PATENT AND DRAINING TO GRAVITY. THE PT DENIES ANY CHEST PAIN/PRESSURE, SOB, PAIN OR N/V THIS SHIFT. CURRENTLY THE PT IS SLEEPING IN BED WITH THE BED IN THE LOWEST POSITION AND THE CALL LIGHT AT BEDSIDE. TELE IS IN PLACE, THE PT HAS BEEN RUNNING SINUS KRISTAL T/O THE NIGHT 40-50'S.
[2023-04-23 04:49] VITALS: BP 132/65
[2023-04-23 07:46] VITALS: BP 138/76
[2023-04-23 08:51] LABS: Albumin, Blood 2.1 g/dL (3.4-5.0); Albumin/Globulin Ratio 0.4 (0.8-1.8); Bilirubin, Total 0.3 mg/dL (0.1-1.0); Bun/Creatinine Ratio 19.1 (12.0-20.0); Calcium, Blood 8.5 mg/dL (8.5-10.1); Creatinine, Blood 2.36 mg/dL (0.60-1.20); Globulin, Blood 4.8 g/dL (2.2-4.0); Potassium, Blood 4.1 mmol/L (3.5-5.5); Total Protein, Blood 6.9 g/dL (6.4-8.2)
--- NOTE | 2023-04-23 10:23 | NUR ---
NURSE NOTE THIS RN HAS REVIEWED AND AGREED WITH STUDENT NURSE SHIFT ASSESSMENT
[2023-04-23] MEDS ORDERED: ACET325 PO (11:10)
[2023-04-23] MEDS ORDERED: TERB250 PO (11:10)
[2023-04-23] MEDS ORDERED: CEFD300 PO (11:11)
--- NOTE | 2023-04-23 14:46 | NUR ---
DISCHARGE SUMMARY: PT DISCHARGED TO [facility] VIA WHEELCHAIR ACCOMPANIED BY MEDICAL FLOOR STAFF TO AWAITING TRANSPORT FROM [facility]. DISCHARGE INFORMATION REVIEWED WITH PT TO INCLUDE MEDICATIONS AND FOLLOW UP APPOINTMENTS. PT VERBALIZES UNDERSTANDING OF DISCHARGE INSTRUCTIONS. ALL PERSONNEL BELONGINGS SENT WITH PT.
--- NOTE | 2023-04-23 15:34 | NUR ---
NURSE NOTE THIS RN HAS REVIEWED STUDENT NURSE DISCHARGE SUMMARY AND AGREES.
== END 2023-04-23 14:55 | disposition home health service (06) | DRG 690 ==
LOC: ER 04:30 → MEDS 08:31
PROVIDERS: Emergency Medicine; Family Medicine; ADMIT Hospitalist
PROC: 0T9B70Z Drainage of Bladder with Drainage Device, Via Natural or Artificial Opening (ICD-10-PCS; principal; 2023-04-21)
DX: N13.6 Pyonephrosis (principal); E87.1 Hypo-osmolality and hyponatremia; Z91.148 Patient's other noncompliance with medication regimen for other reason; N17.9 Acute kidney failure, unspecified; N18.4 Chronic kidney disease, stage 4 (severe); M10.9 Gout, unspecified; I95.9 Hypotension, unspecified; I12.9 Hypertensive chronic kidney disease with stage 1 through stage 4 chronic kidney disease, or unspecified chronic kidney disease; N40.0 Benign prostatic hyperplasia without lower urinary tract symptoms; D63.1 Anemia in chronic kidney disease; K59.00 Constipation, unspecified; Z87.891 Personal history of nicotine dependence; Z79.899 Other long term (current) drug therapy
CPT/HCPCS: 36415; 51702; 80053; 81001; 83605; 83690; 85025; 87040; 87086; 94760; 94762; 96365-59; 96366-59; 96375-59; 99285-25; A9270; J0696; J1644; J1885; J7030

== ENCOUNTER 2023-04-28 09:24 | Emergency (ER) | payer MEDICARE, OTHER ==
[~2023-04-28] VITALS: Ht 170.2 cm; Wt 86.2 kg
[~2023-04-28 09:24] MED LIST changes: +CEFD300 PO
[2023-04-28 11:17] VITALS: BP 129/78
== END 2023-04-28 11:19 | disposition home or self-care (01) ==
LOC: ER 09:24
DX: N39.0 Urinary tract infection, site not specified (principal); Z96.0 Presence of urogenital implants; I10 Essential (primary) hypertension; Z87.891 Personal history of nicotine dependence; Z79.899 Other long term (current) drug therapy
CPT/HCPCS: 99284

== ENCOUNTER 2023-05-19 12:04 | Emergency (ER) | payer MEDICARE, OTHER ==
[~2023-05-19] VITALS: Ht 170.2 cm; Wt 71.2 kg
[2023-05-19 13:00] LABS: BASOPHILS ABSOLUTE AUTO 0.03 K/mm3 (0.00-0.23); BASOPHILS PERCENT AUTO 0 % (0-2); EOSINOPHILS ABSOLUTE AUTO 0.15 K/mm3 (0.00-0.68); EOSINOPHILS PERCENT AUTO 2 % (0-6); Hematocrit 43.3 % (37.0-53.0); Hemoglobin 14.4 g/dL (13.5-17.5); IMMATURE GRAN ABSOLUTE AUTO 0.02 K/mm3 (0.00-0.10); IMMATURE GRAN PERCENT AUTO 0 % (0-1); LYMPHOCYTES ABSOLUTE AUTO 0.67 K/mm3 (0.84-5.20); LYMPHOCYTES PERCENT AUTO 7 % (21-46); MONOCYTES ABSOLUTE AUTO 0.59 K/mm3 (0.16-1.47); MONOCYTES PERCENT AUTO 6 % (4-13); Mean Corpuscular HGB 28.9 pg (26.0-34.0); Mean Corpuscular HGB Conc 33.3 g/dL (31.5-36.5); Mean Corpuscular Volume 87 fL (80-100); Mean Platelet Volume 10.3 fL (9.1-12.4); NEUTROPHILS ABSOLUTE AUTO 8.73 K/mm3 (1.96-9.15); NEUTROPHILS PERCENT AUTO 86 % (41-73); Platelet Count 213 K/mm3 (150-400); RDW Coefficient Variation 13.9 % (11.7-14.2); RDW Standard Deviation 44.1 fL (35.1-46.3); Red Blood Cell Count 4.99 M/mm3 (4.30-5.90); White Blood Cell Count 10.19 K/mm3 (4.00-11.30)
[2023-05-19 13:26] LABS: Albumin/Globulin Ratio 0.5 (0.8-1.8); Bilirubin, Total 0.7 mg/dL (0.1-1.0); Bun/Creatinine Ratio 15.3 (12.0-20.0); Creatinine, Blood 2.22 mg/dL (0.60-1.20); Globulin, Blood 5.9 g/dL (2.2-4.0); Potassium, Blood 4.5 mmol/L (3.5-5.5); Total Protein, Blood 8.9 g/dL (6.4-8.2)
[2023-05-19 15:08] LABS: Source, Urine Clean Catch
[2023-05-19 15:45] LABS: Appearance, Urine Cloudy (Clear); Bilirubin, Urine Neg (Neg); Blood, Urine 5+ (Neg); Color, Urine Yellow (P-Yellow); Glucose Qualitative, Urine Neg (Neg); Ketones, Urine Neg (Neg); Leukocyte Esterase, Urine 3+ (Neg); Nitrite, Urine Neg (Neg); Protein, Urine 3+ (Neg); Urobilinogen, Urine NORM (Normal)
[2023-05-19 16:14] LABS: Red Blood Cells, Urine TNTC /hpf (0-2); White Blood Cells, Urine TNTC /hpf (0-5)
[2023-05-19 16:16] LABS: Bacteria Many /hpf; Squamous Epithelial Cells Rare /hpf (Few)
[2023-05-19] MEDS ORDERED: Bactrim Ds Tab1 EACH PO (16:41)
[2023-05-19 17:12] VITALS: BP 131/81
== END 2023-05-19 17:13 | disposition home or self-care (01) ==
LOC: ER 12:04
PROVIDERS: Physician Assistant
DX: N39.0 Urinary tract infection, site not specified (principal); I10 Essential (primary) hypertension; Z87.891 Personal history of nicotine dependence; Z79.899 Other long term (current) drug therapy
CPT/HCPCS: 80053; 81001; 85025; 87077; 87086; 87186; 99283; A9270

== ENCOUNTER → 2023-05-27 | Outpatient (CLI) | payer MEDICARE, OTHER ==
[~2023-05-27] MED LIST changes: +Bactrim Ds Tab1 EACH PO
[2023-05-28 13:27] LABS: Appearance, Urine Hazy (Clear); Bilirubin, Urine Neg (Neg); Blood, Urine 5+ (Neg); Color, Urine Yellow (P-Yellow); Glucose Qualitative, Urine Neg (Neg); Ketones, Urine Neg (Neg); Leukocyte Esterase, Urine 2+ (Neg); Nitrite, Urine Neg (Neg); Protein, Urine 3+ (Neg); Specific Gravity, Urine 1.015 (1.003-1.022); Urobilinogen, Urine NORM (Normal)
[2023-05-28 13:43] LABS: Bacteria Many /hpf; Granular Casts 0-2 /lpf (0); Red Blood Cells, Urine 25-50 /hpf (0-2); Squamous Epithelial Cells Few /hpf (Few)
== END | disposition home or self-care (01) ==
LOC: LAB 12:20 → LAB SHORT 12:20
PROVIDERS: Internal Medicine Hematology & Oncology
DX: N39.0 Urinary tract infection, site not specified (principal)
CPT/HCPCS: 81001; 87086

== ENCOUNTER → 2023-07-02 | Outpatient (CLI) | payer MEDICARE, OTHER | LOC: LAB 17:15 | DX: L08.9 Local infection of the skin and subcutaneous tissue, unspecified (principal) ==